=== PATIENT | female | born 1955 | race African-American/Black ===

== ENCOUNTER 2017-04-14 21:39 | Emergency (ER) | payer BC, MEDICARE ==
[~2017-04-14] VITALS: Ht 152.4 cm; Wt 112.0 kg
[~2017-04-14 21:39] MED LIST: BENI40TA30; DICY1TAB26; IBUP400T20 PO; LEVO.15; META800; PRED20 PO; RANI150; ROSI1TAB24; ROSU10; TOPR25TA2; TYLE3 PO
[2017-04-14 21:46] VITALS: PULSE 52; O2SAT 94
[2017-04-14 21:50] VITALS: BP 250/121; PULSE 60; RESP 21; O2SAT 96
[2017-04-14] MEDS ORDERED: LISI10TA3 PO (22:05)
[2017-04-14] MEDS ORDERED: LEVO75TA3 PO (22:05)
--- NOTE | 2017-04-14 22:08 | PD ---
HPI Chief Complaint: Complaint Time Seen by Provider: 21:46 Travel History International Travel<30 days: No Contact w/Intl Traveler<30days: No Traveled to known affect area: No History of Present Illness HPI 61 year old female presents to the emergency department for evaluation of headache, HTN. Patient states that she woke up this morning with pain behind her left year and to the left forehead. She currently rates the pain 9/10 without radiation, throbbing and tight. Patient does state that she has a history of migraines, last one being approximately 5 years ago. Patient reports history of hypertension, but cannot recall what medication she is currently on. Patient denies any chest pain or shortness of breath. No abdominal pain. She does report vomiting throughout the day. No PFSH Past Medical History Arthritis: Yes (KNEES) Asthma: Yes Atrial Fibrillation: Yes Blood Disorders: No Heart Rhythm Problems: No Cancer: No Cardiac Catheterization: Yes (1997, WITH BALLOON ANGIO) Cardiovascular Problems: Yes High Cholesterol: Yes Chemotherapy: No Chest Pain: Yes Congestive Heart Failure: No COPD: No Cerebrovascular Accident: No Coronary Artery Disease: Yes (?) Diabetes: Yes Patient Takes Glucophage: No Diminished Hearing: No Endocrine: Yes Gastrointestinal Disorders: Yes GERD: Yes Genitourinary: Yes Headaches: Yes Hepatitis: No Hiatal Hernia: Yes Hypertension: Yes Immune Disorder: No Kidney Stones: Yes Musculoskeletal: Yes Neurologic: Yes Psychiatric: No Reproductive: No Respiratory: Yes Migraines: No Myocardial Infarction: No Radiation Therapy: No Renal Failure: No Seizures: No Sleep Apnea: No Thyroid Disease: Yes Ulcer: Yes ?: Not : 3 Para: 3 Tubal Ligation: Yes Past Surgical History Abdominal Surgery: Yes (TUBAL LIGATION, GALLBLADDER REMOVED) AICD: No Appendectomy: No Arteriovenous Shunt: No Cardiac Surgery: No Cholecystectomy: Yes Coronary Stent: No Ear Surgery: No Endocrine Surgery: No Eye Surgery: No Genitourinary Surgery: No Gynecologic Surgery: Yes (TUBAL LIGATION) Insulin Pump: No Joint Replacement: No Oral Surgery: No Pacemaker: No Thoracic Surgery: No Other Surgery: Yes (GALLBLADDER, KIDNEY STONES) Social History Alcohol Use: No Tobacco Use: No Substance Use: No Allergies-Medications (Allergen,Severity, Reaction): Coded Allergies: No Known Allergies (Verified , 04/07/09) Reported Meds & Prescriptions Reported Meds & Active Scripts Active Reported Levothyroxine (Levothyroxine Sodium) 75 Mcg Tab 75 Mcg PO DAILY Lisinopril 10 Mg Tab 10 Mg PO DAILY Data Data Last Documented VS Vital Signs Date Time Temp Pulse Resp B/P (MAP) Pulse Ox O2 Delivery O2 Flow Rate FiO2 04/14/17 21:50 60 21 250/121 (164) 96 Room Air Orders Orders Complete Blood Count With Diff (04/14/17 22:04) Basic Metabolic Panel (Bmp) (04/14/17 22:04) Prothrombin Time / Inr (Pt) (04/14/17 22:04) Act Partial Throm Time (Ptt) (04/14/17 22:04) Ecg Monitoring (04/14/17 22:04) Iv Access Insert/Monitor (04/14/17 22:04) Oximetry (04/14/17 22:04) Sodium Chloride 0.9% Flush (Ns Flush) (04/14/17 22:15) Prochlorperazine Inj (Compazine Inj) (04/14/17 22:15) Diphenhydramine Inj (Benadryl Inj) (04/14/17 22:15) Ct Brain W/O Iv Contrast(Rout) (04/14/17 ) Hydralazine Inj (Apresoline Inj) (04/14/17 22:15) Urinalysis - C+S If Indicated (04/14/17 22:04) Melissa Altman Apr 14, 2017 22:08
[2017-04-14] MEDS ORDERED: diphenhydrAMINE HCL 50 MG/ML VIAL IVP ONE (22:15)
[2017-04-14] MEDS ORDERED: SODIUM CHLORIDE 0.9% FLUSH 10 ML FLUSH IVF PRN (22:15)
[2017-04-14] MEDS ORDERED: PROCHLORPERAZINE INJ 10 MG/2 ML VIAL IVP ONE (22:15)
[2017-04-14] MEDS ORDERED: hydrALAZINE HCL 20 MG/ML VIAL IV PUSH ONE (22:15)
--- NOTE | 2017-04-14 22:21 | PD ---
HPI Chief Complaint: Complaint Time Seen by Provider: 21:46 Travel History International Travel<30 days: No Contact w/Intl Traveler<30days: No Traveled to known affect area: No History of Present Illness HPI Patient is a 61-year-old female who recently moved here from [place] with her daughter today early this morning she developed severe left-sided neck pain that radiates up over the [place] area towards her eye. They took her blood pressure and noticed that it was very high over 200 systolic. She is not taking any medications currently for hypertension because she moved her recently and has not been taking care of herself has not seen a doctor and is not having a plan for managing her high blood pressure in the ER her main complaint is the headache from the left neck to the left eye and her pressure systolic is 250 she will be given hydralazine CAT scan labs UA and reevaluate at this time she denies nausea she denies chest pain . she denies visual changes onlry reports the left-sided headache and pressure in her head. After thought she mentioned that she has Dysuria for a few days which continues in the ER she took nothing for thr Urine symptoms PFSH Past Medical History Arthritis: Yes (KNEES) Asthma: Yes Atrial Fibrillation: Yes Blood Disorders: No Heart Rhythm Problems: No Cancer: No Cardiac Catheterization: Yes (1997, WITH BALLOON ANGIO) Cardiovascular Problems: Yes High Cholesterol: Yes Chemotherapy: No Chest Pain: Yes Congestive Heart Failure: No COPD: No Cerebrovascular Accident: No Coronary Artery Disease: Yes (?) Diabetes: Yes Patient Takes Glucophage: No Diminished Hearing: No Endocrine: Yes Gastrointestinal Disorders: Yes GERD: Yes Genitourinary: Yes Headaches: Yes Hepatitis: No Hiatal Hernia: Yes Hypertension: Yes Immune Disorder: No Kidney Stones: Yes Musculoskeletal: Yes Neurologic: Yes Psychiatric: No Reproductive: No Respiratory: Yes Migraines: No Myocardial Infarction: No Radiation Therapy: No Renal Failure: No Seizures: No Sleep Apnea: No Thyroid Disease: Yes Ulcer: Yes ?: Not : 3 Para: 3 Tubal Ligation: Yes Past Surgical History Abdominal Surgery: Yes (TUBAL LIGATION, GALLBLADDER REMOVED) AICD: No Appendectomy: No Arteriovenous Shunt: No Cardiac Surgery: No Cholecystectomy: Yes Coronary Stent: No Ear Surgery: No Endocrine Surgery: No Eye Surgery: No Genitourinary Surgery: No Gynecologic Surgery: Yes (TUBAL LIGATION) Insulin Pump: No Joint Replacement: No Oral Surgery: No Pacemaker: No Thoracic Surgery: No Other Surgery: Yes (GALLBLADDER, KIDNEY STONES) Social History Alcohol Use: No Tobacco Use: No Substance Use: No Allergies-Medications (Allergen,Severity, Reaction): Coded Allergies: No Known Allergies (Verified , 04/07/09) Reported Meds & Prescriptions Reported Meds & Active Scripts Active Clonidine (Clonidine HCl) 0.1 Mg Tab 0.1 Mg PO BID Norvasc (Amlodipine Besylate) 5 Mg Tab 5 Mg PO DAILY Bactrim DS (Sulfamethoxazole-Trimethoprim) 800-160 Mg Tab 1 Tab PO BID Reported Levothyroxine (Levothyroxine Sodium) 75 Mcg Tab 75 Mcg PO DAILY Lisinopril 10 Mg Tab 10 Mg PO DAILY Review of Systems Except as stated in HPI: all other systems reviewed are Neg Physical Exam Narrative GENERAL: Nontoxic appearing awake alert complaining of a headache SKIN: Warm and dry. HEAD: Atraumatic. Normocephalic. EYES: Pupils equal and round. No scleral icterus. No injection or drainage. ENT: No nasal bleeding or discharge. Mucous membranes pink and moist. NECK: Trachea midline. No JVD. CARDIOVASCULAR: Regular rate and rhythm. RESPIRATORY: No accessory muscle use. Clear to auscultation. Breath sounds equal bilaterally. GASTROINTESTINAL: Abdomen mildly obese soft, non-tender, nondistended. Hepatic and splenic margins not palpable. MUSCULOSKELETAL: Extremities without clubbing, cyanosis, or edema. No obvious deformities. NEUROLOGICAL: Awake and alert. No obvious cranial nerve deficits. Motor grossly within normal limits. Five out of 5 muscle strength in the arms and legs. Normal speech. PSYCHIATRIC: Appropriate mood and affect; insight and judgment normal. Data Data Last Documented VS Orders Orders Complete Blood Count With Diff (04/14/17 22:04) Basic Metabolic Panel (Bmp) (04/14/17 22:04) Prothrombin Time / Inr (Pt) (04/14/17 22:04) Act Partial Throm Time (Ptt) (04/14/17 22:04) Ecg Monitoring (04/14/17 22:04) Iv Access Insert/Monitor (04/14/17 22:04) Oximetry (04/14/17 22:04) Sodium Chloride 0.9% Flush (Ns Flush) (04/14/17 22:15) Prochlorperazine Inj (Compazine Inj) (04/14/17 22:15) Diphenhydramine Inj (Benadryl Inj) (04/14/17 22:15) Ct Brain W/O Iv Contrast(Rout) (04/14/17 ) Hydralazine Inj (Apresoline Inj) (04/14/17 22:15) Urinalysis - C+S If Indicated (04/14/17 22:04) Amlodipine (Norvasc) (04/14/17 23:30) Clonidine (Catapres) (04/14/17 23:30) Urine Culture (04/15/17 00:23) Ceftriaxone Inj (Rocephin Inj) (04/15/17 01:00) Ed Discharge Order (04/15/17 01:09) Electrocardiogram (04/14/17 22:14) Labs Laboratory Tests Test 04/14/17 22:15 04/15/17 00:23 White Blood Count 7.8 TH/MM3 Red Blood Count 3.54 MIL/MM3 Hemoglobin 10.8 GM/DL Hematocrit 33.2 % Mean Corpuscular Volume 93.6 FL Mean Corpuscular Hemoglobin 30.4 PG Mean Corpuscular Hemoglobin Concent 32.4 % Red Cell Distribution Width 14.8 % Platelet Count 144 TH/MM3 Mean Platelet Volume 11.0 FL Neutrophils (%) (Auto) 67.7 % Lymphocytes (%) (Auto) 22.1 % Monocytes (%) (Auto) 7.7 % Eosinophils (%) (Auto) 2.1 % Basophils (%) (Auto) 0.4 % Neutrophils # (Auto) 5.3 TH/MM3 Lymphocytes # (Auto) 1.7 TH/MM3 Monocytes # (Auto) 0.6 TH/MM3 Eosinophils # (Auto) 0.2 TH/MM3 Basophils # (Auto) 0.0 TH/MM3 CBC Comment DIFF FINAL Differential Comment Prothrombin Time 10.7 SEC Prothromb Time International Ratio 1.1 RATIO Activated Partial Thromboplast Time 25.8 SEC Blood Urea Nitrogen 15 MG/DL Creatinine 1.84 MG/DL Random Glucose 83 MG/DL Calcium Level 9.6 MG/DL Sodium Level 140 MEQ/L Potassium Level 3.5 MEQ/L Chloride Level 106 MEQ/L Carbon Dioxide Level 26.8 MEQ/L Anion Gap 7 MEQ/L Estimat Glomerular Filtration Rate 34 ML/MIN Urine Color YELLOW Urine Turbidity HAZY Urine pH 7.0 Urine Specific Mallory 1.015 Urine Protein 30 mg/dL Urine Glucose (UA) NEG mg/dL Urine Ketones NEG mg/dL Urine Occult Blood MOD Urine Nitrite NEG Urine Bilirubin NEG Urine Urobilinogen LESS THAN 2.0 MG/DL Urine Leukocyte Esterase LARGE Urine RBC /hpf Urine WBC /hpf Urine WBC Clumps MANY Urine Bacteria OCC /hpf Urine Mucus FEW /lpf Microscopic Urinalysis Comment CULTURE INDICATED MDM Medical Decision Making Medical Screen Exam Complete: Yes Emergency Medical Condition: Yes Differential Diagnosis headache pain causing HTN , vs HNT causing the headache , pt has no meds Narrative Course CT head normal UA + levaquin PO given in ED and Norvasc and clonidine given in the ER for HTN , her pressure came down to 147 SBP she felt much improved as HTN and UTI treated , she is safe for discharge and given Rx for Norvasc and Bactrim DS PO for Uti [facility] info given to daugther and patient Diagnosis Primary Impression: UTI (urinary tract infection) Qualified Codes: N30.01 - Acute cystitis with hematuria Additional Impression: Hypertension Qualified Codes: I10 - Essential (primary) hypertension Patient Instructions: Chronic Hypertension (ED), General Instructions, Urinary Traction Infection in Older Adults (ED) Scripts Clonidine (Clonidine) 0.1 Mg Tab 0.1 MG PO BID for Blood Pressure Management, #60 TAB 0 Refills Prov: Pepe Kaur MD 04/15/17 Amlodipine (Norvasc) 5 Mg Tab 5 MG PO DAILY for Blood Pressure Management, #30 TAB 0 Refills Prov: Pepe Kaur MD 04/15/17 Sulfamethoxazole-Trimethoprim (Bactrim DS) 800-160 Mg Tab 1 TAB PO BID for Infection, #14 TAB 0 Refills Prov: Pepe Kaur MD 04/15/17 Disposition: DISCHARGE HOME Condition: Good Pepe Kaur MD Apr 14, 2017 22:20
[2017-04-14 22:50] LABS: AUTOMATED NEUTROPHIL # 5.3 TH/MM3 (1.8-7.7); BASOPHIL % 0.4 % (0.0-2.0); EOSINOPHIL # 0.2 TH/MM3 (0-0.4); EOSINOPHIL % 2.1 % (0.0-4.0); HEMATOCRIT 33.2 % (35.0-46.0); HEMOGLOBIN 10.8 GM/DL (11.6-15.3); LYMPH % 22.1 % (9.0-44.0); LYMPHOCYTE # 1.7 TH/MM3 (1.0-4.8); MEAN CELL VOLUME 93.6 FL (80.0-100.0); MEAN CORPUSCULAR HEMOGLOBIN 30.4 PG (27.0-34.0); MEAN CORPUSCULAR HGB CONC 32.4 % (32.0-36.0); MONO % 7.7 % (0.0-8.0); MONOCYTE # 0.6 TH/MM3 (0-0.9); NEUT % 67.7 % (16.0-70.0); PLATELET COUNT 144 TH/MM3 (150-450); RED BLOOD COUNT 3.54 MIL/MM3 (4.00-5.30); RED CELL DISTRIBUTION WIDTH 14.8 % (11.6-17.2); WHITE BLOOD COUNT 7.8 TH/MM3 (4.0-11.0)
[2017-04-14 23:00] LABS: INTERNATIONAL NORMALIZED RATIO 1.1 RATIO; PROTHROMBIN TIME - PATIENT 10.7 SEC (9.8-11.6)
[2017-04-14 23:03] LABS: BICARBONATE 26.8 MEQ/L (21.0-32.0); CALCIUM 9.6 MG/DL (8.5-10.1); CREATININE 1.84 MG/DL (0.50-1.00)
[2017-04-14 23:05] VITALS: BP 160/81; PULSE 75; RESP 18; O2SAT 96
--- NOTE | 2017-04-14 23:09 | RADRPT ---
EXAM DATE/TIME: 04/14/2017 22:46 [facility] COMPARISON: No previous studies available for comparison. INDICATIONS : Headaches. RADIATION DOSE: 35.53 CTDIvol (mGy) MEDICAL HISTORY : Cardiovascular disease. Hypertension. SURGICAL HISTORY : None. ENCOUNTER: Initial ACUITY: 1 day PAIN SCALE: 5/10 LOCATION: chest TECHNIQUE: Multiple contiguous axial images were obtained of the head. Using automated exposure control and adj ustment of the mA and/or kV according to patient size, radiation dose was kept as low as reasonably a chievable to obtain optimal diagnostic quality images. DICOM format image data is available electro nically for review and comparison. FINDINGS: CEREBRUM: The ventricles are normal for age. No evidence of midline shift, mass lesion, hemorrhage or acute in farction. No extra-axial fluid collections are seen. POSTERIOR FOSSA: The cerebellum and brainstem are intact. The 4th ventricle is midline. The cerebellopontine angle i s unremarkable. EXTRACRANIAL: The visualized portion of the orbits is intact. SKULL: The calvaria is intact. No evidence of skull fracture. CONCLUSION: 1. No acute findings in the brain. Leonard Topete MD on April 14, 2017 at 23:07 Board Certified Radiologist. This report was verified electronically.
[2017-04-14] MEDS ORDERED: cloNIDine HCL 0.1 MG TAB PO ONE (23:30)
[2017-04-15 00:48] LABS: BACTERIA, URINE OCC /hpf; BILIRUBIN, URINE NEG (NEG); BLOOD, URINE MOD (NEG); GLUCOSE,URINE NEG (NEG); KETONE, URINE NEG (NEG); MUCUS URINE FEW /lpf (OCC); NITRITE,URINE NEG (NEG); URINE COLOR YELLOW (YELLW/STRAW); URINE LEUKOCYTE ESTERASE LARGE (NEG); WHITE BLOOD CELL CLUMPS MANY
[2017-04-15 00:55] VITALS: BP 149/78; PULSE 62; RESP 16; O2SAT 97
[2017-04-15] MEDS ORDERED: cefTRIAXone INJ 1,000 MG in SODIUM CHLORIDE 0.9% INJ 100 ML IV ONE (01:00)
[2017-04-15] MEDS ORDERED: BACT800T5 PO (01:06)
[2017-04-15] MEDS ORDERED: CLON0.1T PO (01:06)
[2017-04-15] MEDS ORDERED: AMLO5 PO (01:06)
--- NOTE | 2017-04-15 18:05 | EKG ---
Date Performed: 04/14/2017 Time Performed: 22:14:13 PTAGE: 61 years EKG: SINUS BRADYCARDIA WITH SINUS ARRHYTHMIA LEFT VENTRICULAR HYPERTROPHY AND ST-T CHANGE ABNORM AL ECG Compared to PREVIOUS TRACING , the patient is now bradycardic. PREVIOUS TRACIN04/18/2006 09.21 DOCTOR: Criss Mcmullen Interpretating Date/Time 04/15/2017 18:03:06
== END 2017-04-15 01:51 | disposition home or self-care (01) ==
LOC: NEPC 21:39
DX: N30.01 Acute cystitis with hematuria (principal); I10 Essential (primary) hypertension; E07.9 Disorder of thyroid, unspecified; R00.1 Bradycardia, unspecified
CPT/HCPCS: 70450; 80048; 81001; 85025; 85610; 85730; 87077; 87086; 87186; 93005; 96374; 96375; 99284; J0360; J0780; J1200